=== PATIENT | male | born 1980 | race Two or more races ===

== ENCOUNTER 2024-10-28 11:50 | Emergency (ER) | payer OTHER ==
[~2024-10-28] VITALS: Ht 175.3 cm; Wt 90.7 kg
[2024-10-28] MEDS ORDERED: IBUPROFEN 600 MG TABLET ONE (12:55)
[2024-10-28] MEDS ORDERED: ACETAMINOPHEN ES 500 MG TABLET ONE (12:55)
[2024-10-28] MEDS: ACETAMINOPHEN ES 500 MG TABLET PO ONE (12:57)
[2024-10-28] MEDS: IBUPROFEN 600 MG TABLET PO ONE (12:57)
[2024-10-28] MEDS ORDERED: IBUP-1490 PO (13:13)
[2024-10-28 13:22] VITALS: BP 121/69; TEMP 98.2; O2SAT 98
== END 2024-10-28 13:41 | disposition home or self-care (01) ==
LOC: ER 12:12
DX: S09.90XA Unspecified injury of head, initial encounter (principal); I10 Essential (primary) hypertension; V89.2XXA Person injured in unspecified motor-vehicle accident, traffic, initial encounter; Y93.89 Activity, other specified; Y92.410 Unspecified street and highway as the place of occurrence of the external cause; Y99.9 Unspecified external cause status
CPT/HCPCS: 70450-TC

== ENCOUNTER 2024-12-04 21:15 | Emergency (ER) | payer OTHER ==
[~2024-12-04] VITALS: Ht 175.3 cm; Wt 90.7 kg
[~2024-12-04 21:15] MED LIST: IBUP-1490 PO
[2024-12-04 22:02] LABS: PLATELET COUNT (AUTO) 228 K/uL (150-450); RED BLOOD CELL COUNT(AUTO) 4.62 MIL/uL (4.5-6.0); RED CELL DISTRIBUTION WIDTH 13.2 % (11.5-15.0); WHITE BLOOD COUNT (AUTO) 10.8 K/uL (4.3-11.0)
[2024-12-04 22:31] LABS: CALCIUM, SERUM 8.3 mg/dL (8.5-10.1); CREATININE 1.1 mg/dL (0.6-1.3); SODIUM SERUM 140 mmol/L (136-145); UREA NITROGEN, BLOOD 21 mg/dL (7-18)
[2024-12-04 22:43] LABS: ASPARTATE AMINOTRANSFERASE 24 U/L (15-37); NT-PRO BNP 33 pg/mL (0-125); TOTAL PROTEIN, SERUM 7.2 g/dL (6.4-8.2)
[2024-12-04] MEDS ORDERED: POTASSIUM CHLORIDE 20 MEQ TAB.PRT.SR PO ONE (22:44)
[2024-12-04] MEDS: POTASSIUM CHLORIDE 20 MEQ TAB.PRT.SR PO ONE (22:46)
[2024-12-04 22:47] VITALS: BP 132/89; TEMP 98; O2SAT 97
== END 2024-12-04 22:47 | disposition home or self-care (01) ==
LOC: ER 21:18
DX: I47.10 Supraventricular tachycardia, unspecified (principal); E87.6 Hypokalemia; I11.9 Hypertensive heart disease without heart failure; F17.200 Nicotine dependence, unspecified, uncomplicated; Z86.79 Personal history of other diseases of the circulatory system
CPT/HCPCS: 36415; 71045-TC; 80048-TC; 80076-TC; 83880; 84484-TC; 85025-TC